=== PATIENT | male | born 2000 | race Hispanic/Latino ===

== ENCOUNTER 2020-09-05 06:07 | Emergency (ER) | payer SELFPAY ==
[2020-09-05] MEDS ORDERED: METOCLOPRAMIDE 10 MG/2 ML VIAL ONE (06:18)
[2020-09-05] MEDS ORDERED: ONDANSETRON HCL 4 MG/2 ML VIAL ONE (06:18)
[2020-09-05] MEDS ORDERED: FAMOTIDINE/PF 20 MG/2 ML VIAL IV ONE (06:18)
[2020-09-05 06:43] LABS: CREATININE 1.4 mg/dL (0.5-1.5); POTASSIUM 4.2 mmol/L (3.5-5.1)
[2020-09-05 07:26] LABS: BASOPHILS % (AUTO) 0.5 % (0.0-5.0); EOSINOPHILS % (AUTO) 0.8 % (0.0-8.0); LYMPHOCYTES % (AUTO) 16.2 % (21.0-51.0); MEAN CORPUSCULAR HEMOGLOBIN 30.3 pg (27.0-33.0); MEAN CORPUSCULAR HGB CONC 34.3 g/dL (32.0-36.0); MEAN CORPUSCULAR VOLUME 88.5 fL (80-100); MONOCYTES % (AUTO) 6.9 % (3.0-13.0); NEUTROPHILS % (AUTO) 75.2 % (40.0-77.0); PLATELET COUNT (AUTO) 242 K/uL (130-400); RED BLOOD CELL COUNT(AUTO) 5.31 MIL/uL (4.50-6.20); RED CELL DISTRIBUTION WIDTH 11.9 % (11.0-15.5); WHITE BLOOD COUNT (AUTO) 11.4 K/uL (4.8-10.8)
== END 2020-09-05 07:52 | disposition home or self-care (01) ==
LOC: EDH 06:07
DX: K29.00 Acute gastritis without bleeding (principal); R11.2 Nausea with vomiting, unspecified
CPT/HCPCS: 36415; 80048; 83690; 85025; 96361; 96374; 96375; 99284; J2405; J2765; J3490; J7030

== ENCOUNTER 2021-10-21 06:54 | Emergency (ER) | payer OTHER, SELFPAY ==
[~2021-10-21] VITALS: Ht 160 cm; Wt 86.2 kg
[2021-10-21] MEDS ORDERED: ACETAMINOPHEN 500 MG TABLET PO ONE (08:00)
[2021-10-21] MEDS ORDERED: IBUPROFEN 600 MG TABLET PO ONE (08:00)
[2021-10-21 09:19] VITALS: BP 112/61
== END 2021-10-21 09:22 | disposition home or self-care (01) ==
LOC: EDH 06:54
DX: U07.1 COVID-19 (principal); Z79.1 Long term (current) use of non-steroidal anti-inflammatories (NSAID)
CPT/HCPCS: 87635; 87804 ×2; 87880; 99283; C9803

== ENCOUNTER 2024-12-28 19:55 | Emergency (ER) | payer OTHER ==
[~2024-12-28] VITALS: Ht 160 cm; Wt 107.0 kg
[~2024-12-28 19:55] MED LIST: CIPOTIC AD
[2024-12-28 20:37] LABS: RAPID GROUP A STREP negative (NEGATIVE)
[2024-12-28 20:39] LABS: SARS-CoV-2, RNA, NAAT NEGATIVE SARS CoV-2 (NEGATIVE)
--- NOTE | 2024-12-28 20:42 | HMCIMG ---
PORTABLE CHEST RADIOGRAPH INDICATION: pneumonia, couygh COMPARISON: None FINDINGS: Heart size is normal. The pulmonary vascularity and mervin appear normal. No abnormal pulmonary parenchymal opacity or consolidation identified. No significant pleural effusion noted. No pneumothorax detected. IMPRESSION: No radiographic evidence for any acute cardiopulmonary process.
[2024-12-28 20:47] LABS: INFLUENZA TYPE B Negative For Type B (NEGATIVE)
[2024-12-28] MEDS: 0.9%NACL 1000ML 1,000 ML IV STA (21:12)
[2024-12-28] MEDS: acetaMINOPHEN 500 MG TABLET PO STA (21:13)
[2024-12-28] MEDS: ketOROlac 15MG/ML VIAL (15MG/ML) IV STA (21:13)
[2024-12-28 21:33] LABS: INFLUENZA TYPE A Positive For Type A (NEGATIVE)
[2024-12-28] MEDS ORDERED: OSEL75 PO (21:44)
--- NOTE | 2024-12-28 21:45 | ERN ---
ED Note History of Present Illness Stated Complaint: HEADACHE, FATIGUE Chief Complaint: Cough Time Seen by MD: 19:55 Time Seen by Midlevel: 20:00 Dictation: 24-year-old male with no past medical history coming in complaining of sore throat, cough, headache, fever, chills, vomiting for three days. 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 Denies any chest pain, chest discomfort, shortness a breath. Allergies: Coded Allergies: No Known Drug Allergies (Unverified Allergy, Unknown, 10/21/21) Home Meds Active Scripts Ciprofloxacin HCl/Hc (Cipro Hc Otic Susp) 0.2 %-1 % Otsus, 2 DROP AD BID for 7 Days, #7.5 ML Prov:CRYSTAL CHAO 07/11/24 Past Medical History Past Medical History: No Pertinent History Surgical History: None Review of System Dictation Constitutional: Positive for fever and chills Eyes: Negative for injury, pain,redness, and discharge ENT: Negative for injury,pain or swelling Cardiovascular: Negative for chest pain, palpitations, and edema Respiratory: Negative for shortness of breath, complaining of cough Abdomen/GI: Negative for abdominal pain, nausea, vomiting, diarrhea, and constipation Back: Negative for injury and pain : Negative for injury, bleeding and discharge MS/Extremity: Negative for injury and deformity Skin: Negative for rash, and discoloration Neuro: Negative for headache, weakness, numbness, tingling, and seizure Psych: Negative for suicide ideation, homicidal ideation, and hallucinations Review of Systems: was completed Initial Vital Sign VS Vital Signs Date Time Temp Pulse Resp B/P (MAP) Pulse Ox O2 Delivery O2 Flow Rate FiO2 12/28/24 20:08 102.9 122 20 111/70 96 Room Air Physical Exam Dictation Constitutional: Negative for fever,chills, and weight loss Eyes: Negative for injury, pain,redness, and discharge ENT: Negative for injury,pain or swelling Cardiovascular: Negative for chest pain, palpitations, and edema Respiratory: Negative for shortness of breath, cough, and wheezing, Abdomen/GI: Negative for abdominal pain, nausea, vomiting, diarrhea, and constipation Back: Negative for injury and pain : Negative for injury, bleeding and discharge MS/Extremity: Negative for injury and deformity Skin: Negative for rash, and discoloration Neuro: Negative for headache, weakness, numbness, tingling, and seizure Psych: Negative for suicide ideation, homicidal ideation, and hallucinations Results (Laboratory/Radiology) Laboratory/Radiology Laboratory Tests Test 12/28/24 20:13 Influenza Type A Antigen Positive For Type A Influenza Type B Antigen Negative For Type B SARS-CoV-2, RNA, NAAT NEGATIVE SARS CoV-2 Group A Streptococcus Rapid negative (NEGATIVE) Labs Reviewed?: Yes X-RAY Comment: [place] [id number] [place] [address] [id number] IMAGING REPORT Signed PATIENT: RADHA BURNS JR MR#: [id number] : 2000 SEX: M AGE: 24 LOCATION: [facility] ORDER 99 STATUS: [facility] ER REPORT#: [id number] SERVICE 58 REASON: pneumonia, couygh ORDERING PHYSICIAN: AMANDA LOYD MD PROCEDURE: CXR1VW - CHEST 1VW PORTABLE CHEST RADIOGRAPH INDICATION: pneumonia, couygh COMPARISON: None FINDINGS: Heart size is normal. The pulmonary vascularity and mervin appear normal. No abnormal pulmonary parenchymal opacity or consolidation identified. No significant pleural effusion noted. No pneumothorax detected. IMPRESSION: No radiographic evidence for any acute cardiopulmonary process. DICTATED BY: CORBIN COX MD DATE: 12/28/242037 ELECTRONICALLY SIGNED BY: CORBIN COX MD DATE: 12/28/242041 ED Course ED Course Orders Procedure Category Date Status Time Chest 1vw RAD 12/28/24 Resulted 19:59 Covid Rna Naat LAB 12/28/24 Complete 20:15 Influenza Type A & B, LAB 12/28/24 Complete Rapid 20:15 Rapid (Group A Strep) LAB 12/28/24 Complete 20:15 0.9%Nacl 1000ml (Ns PHA 12/28/24 In Process 1000ml) 20:55 Acetaminophen 500mg PHA 12/28/24 Complete Tab (Tylenol 500mg T 20:55 Ketorolac PHA 12/28/24 Complete Tromethamine 15mg/Ml 20:55 Current Medications Medications (Trade) Dose Ordered Sig/Marah Route PRN Reason Start Time Stop Time Status Last Admin Dose Admin Acetaminophen (TYLenol 500MG TAB) 1,000 mg STAT STAT PO 12/28/24 20:55 12/28/24 20:57 DC 12/28/24 21:13 Ketorolac Tromethamine (toRADol) 15 mg ONCE STAT IV 12/28/24 20:55 12/28/24 20:57 DC 12/28/24 21:13 Sodium Chloride 1,000 ml @ 1,000 mls/hr Q1H STAT IV 12/28/24 20:55 12/28/24 21:54 12/28/24 21:12 Vital Signs Date Time Temp Pulse Resp B/P (MAP) Pulse Ox O2 Delivery O2 Flow Rate FiO2 12/28/24 20:08 102.9 122 20 111/70 96 Room Air Medical Decision Making MDM MDM: 24-year-old male with no past medical history coming in complaining of sore throat, cough, headache, fever, chills, vomiting for three days. 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 Denies any chest pain, chest discomfort, shortness a breath. Swabs positive for flu A. We will prescribe patient Tamiflu to go home. X-ray looks within normal range normal findings. Discussed findings with the patient. Educated patient this can last anywhere from 7-10 days. Educated to take Tamiflu along with Tylenol or Motrin for fever and body ache control. She can take Robitussin until son [id number] for cough. Patient verbalized understanding, answered all questions. Differential diagnosis: Influenza, COVID, viral syndrome, pneumonia Rationale: Tests considered and ordered secondary to shared decision making include: Previous outside records reviewed: Old ER visits. Risk of complication and/or morbidity or mortality of patient management: None Medications-Per medication reconciliation Need for hospitalization: Patient does not meet criteria for hospitalization. Need for emergency major/minor surgery: No There are no social concerns with this patient. Prescription drug management Prescriptions will include symptomatic care Patient's prior external medical records from other ER visits were reviewed by me as indicated. Prior testing and results from previous visits were reviewed. Prior tests were taken into account with medical decision making and resource utilization, independent historian/historians were used to obtain complete medical history. I independently interpreted the test that were performed, results were reviewed by me and considered findings on radiology if ordered. Medical management and examination interpretation discussions were had by me with other qualified healthcare professionals as indicated for the patient's care. DX & DISP Disposition: Discharge Departure Impression: Primary Impression: Influenza A Condition: Stable Scripts Oseltamivir Phosphate (Tamiflu) 75 Mg Cap 75 MG PO BID for 5 Days, #10 CAP Prov: KAROL BARRETO NP 12/28/24 Additional Instructions: You tested positive for influenza A. I prescribed to you Tamiflu. You can take [id number] Tylenol or Motrin for fever control and body aches. You can take Robitussin for cough or Tessalon Perles. You can take Sudafed or Mucinex [id number] for congestion. This can last anywhere from 7-10 days, follow up with PCP in 1-2 days and or return to the emergency room a you have any worsening symptoms. Referrals: SELF,REFERRAL (PCP) Time of Disposition: 21:43 I have reviewed the case, and I agree with, Diagnosis and Plan KAROL BARRETO NP Dec 28, 2024 21:45
[2024-12-28 22:17] VITALS: BP 118/72; PULSE 92; RESP 20; TEMP 101.2; O2SAT 96
== END 2024-12-28 22:19 | disposition home or self-care (01) ==
LOC: EDH 19:55
DX: J10.1 Influenza due to other identified influenza virus with other respiratory manifestations (principal); Z20.822 Contact with and (suspected) exposure to COVID-19
CPT/HCPCS: 99284; 96374; 71045; 87635; 87880; 87804 ×2; J1885